=== PATIENT | male | born 2000 | race Caucasian/White ===

== ENCOUNTER 2021-01-31 08:57 | Emergency (ER) | payer BC, SELFPAY ==
[2021-01-31 09:09] VITALS: BP 132/88; PULSE 81; RESP 16; TEMP 37; O2SAT 99
--- NOTE | 2021-01-31 09:09 | ED.EAR ---
HPI - Ear Problem General Chief complaint: Ear Stated complaint: Left Ear Pain Time Seen by Provider: 01/31/21 09:10 Source: patient, RN notes reviewed and old records reviewed Mode of arrival: ambulatory Limitations: no limitations History of Present Illness HPI Narrative: 21 year old male who presents to [facility] care with complaints of pain to his left ear for the past 2 days, he reports that he has been swimming.Patient states that he has decreased hearing and pain to the outside of his left ear and in his face.Patient denies any sore throat, nasal drainage, cough or only other ill symptoms. MD Complaint: ear pain Related Data Allergies Allergy/AdvReac Type Severity Reaction Status Date / Time No Known Allergies Allergy Mild Verified 01/31/21 09:07 Review of Systems Review of Systems: CONSTITUTIONAL: Denies fever, chills, or sweats. EYES: Denies visual changes, redness, or discharge. ENT: Denies rhinorrhea, congestion, sore throat, positive for left ear otalgia. CARDIOVASCULAR: Denies chest pain, palpitations, or edema. RESPIRATORY: Denies cough or dyspnea. GASTROINTESTINAL: Denies abdominal pain, nausea, vomiting, or diarrhea. GENITOURINARY: Denies dysuria or hematuria. SKIN: Denies rash or itching. MUSCULOSKELETAL: Denies back pain, joint pain, or myalgia. NEUROLOGIC: Denies headache, numbness, or weakness. PSYCHIATRIC: Denies anxiety or depression. All systems reviewed & are unremarkable except as noted in HPI and below PMFSH Past Medical History Medical History (Updated 02/02/21 @ 09:33 by Bindu Foster NP) Otitis externa Surgical History Surgical History (Updated 02/02/21 @ 09:28 by Bindu Foster NP) No history of previous surgery Family History Family History (Updated 02/02/21 @ 09:28 by Bindu Foster NP) Grandparent Diabetes mellitus Social History Social History (Updated 02/02/21 @ 09:29 by Bindu Foster NP) Smoking status: Never smoker Alcohol intake: never Substance use: never Living arrangements: with family Gender identity (if verbalized by the patient): Male Comments At time of signature, agree with nursing past medical, surgical, social and family history. There is no relevant family history pertinent to the presenting complaint Exam Narrative: GENERAL: Well-appearing, well-nourished, and in no acute distress. HEAD: Normocephalic, atraumatic. EYES: PERRLA and EOMI. ENT: Nares clear, no rhinorrhea or epistaxis. Mucous membranes moist.Right TM normal with good light reflex, Left ear canal swollen excoriated with tragal tenderness noted TM normal with good light reflex, has stated decreased hearing to his left ear. NECK: Supple.no lymphadenopathy CHEST: Clear to auscultation. No respiratory distress.SAO2 99% on room air HEART: Regular rate and rhythm. No murmur heard. Normal peripheral pulses. ABDOMEN: Soft, nontender, nondistended, normal active bowel sounds. EXTREMITIES: Normal range of motion. No edema. SKIN: Warm, dry, no rash. NEURO: No focal deficits. Alert and oriented x3. Course Vital Signs Vital signs: Vital Signs Temperature 37.0 C 01/31/21 09:09 Pulse Rate 81 01/31/21 09:09 Respiratory Rate 16 01/31/21 09:09 Blood Pressure 132/88 01/31/21 09:09 Pulse Oximetry 99 01/31/21 09:09 Temperature 37.0 C 01/31/21 09:17 Pulse Rate 81 01/31/21 09:17 Respiratory Rate 16 01/31/21 09:17 Blood Pressure 132/88 01/31/21 09:17 Pulse Oximetry 99 01/31/21 09:17 Medical Decision Making Differential Diagnosis Differential Diagnosis: Otitis externa, otitis media, URI, viral syndrome, pharyngitis, strep pharyngitis Medical Records Medical records reviewed: Yes I reviewed the external patient's medical records. Vital Signs Vital Signs: Vital Signs Temperature 37.0 C 01/31/21 09:09 Pulse Rate 81 01/31/21 09:09 Respiratory Rate 16 01/31/21 09:09 Blood Pressure 132/88 01/31/21 09:09 Pulse Oximetry 99 01/31
[2021-01-31 09:17] VITALS: BP 132/88; PULSE 81; RESP 16; TEMP 37; O2SAT 99
== END 2021-01-31 09:24 | disposition home or self-care (01) ==
PROVIDERS: Emergency Provider Registered Nurse
DX: H60.332 Swimmer's ear, left ear (principal)
CPT/HCPCS: 99213; G0463